=== PATIENT | female | born 1960 | race Asian ===

== ENCOUNTER 2017-08-02 05:23 | Observation (INO) | payer BC, OTHER ==
--- NOTE | 2017-08-01 08:09 | PDGENHP ---
History and Physical History and Physical: Assessment and Plan: 1. Complete uterine prolapse Skip has complete uterovaginal prolapse and stress urinary incontinence. We reviewed all conservative and surgical options. She is not interested in trying a pessary. Given her gaping introitus I do not feel one would stay in place anyhow. At the end of our discussion she is requesting surgical management. This will involve a robotic supracervical hysterectomy, sacral colpopexy, mid urethral sling, perineorrhaphy, and cystoscopy. The risks benefits and alternatives were presented and informed consent was obtained. She is scheduled at [facility]. 2. Genuine stress incontinence, female Subjective: Patient ID: Skip Mckeon is a 56 y.o. female who presents to [facility] for prolapse and incontinence. HPI Skip is a 56-year-old woman with a greater than two-year history of pelvic organ prolapse. She finds it difficult to urinate. The prolapse protrudes from the vagina almost continuously. She also finds it is quite uncomfortable at the end of the day. She is able to pass bowel movements. She recently saw Dr. Palomares and was referred to me for surgical correction. She declined a trial of a pessary. She does leak urine with coughing laughing and sneezing. PastMedicalHistory No past medical history on file. PastSurgicalHistory No past surgical history on file. CURRENT MEDICATIONS: Current Outpatient Prescriptions Medication Sig estradiol (ESTRACE) 0.01 % (0.1 mg/gram) vaginal cream Place 1 g vaginally twice a week. No current facility-administered medications for this visit. ALLERGIES: Penicillins I have reviewed, verified and agree with the past medical, surgical, , family, social and ROS history as documented by the RN today. Objective: Vital Signs: Visit Vitals BP 106/62 Pulse 65 Temp 36.7 C (98.1 F) (Temporal Artery) Resp 12 Ht 1.6 m (5' 3") Wt 67.1 kg (148 lb) SpO2 98% BMI 26.22 kg/m Physical Exam Gen: This is an alert, well developed woman in no distress. Neuro: She moves all extremities. Psych: She is appropriate, oriented, with normal affect. Neck: No thyroid enlargement, adenopathy, or tenderness. Lungs: Clear to ascultation, no wheezes or rales. Heart: Regular rate and rhythm without obvious murmurs. Abdomen: Soft, non-tender, without guarding, rebound, or masses. Extremities: No edema or cyanosis. Pelvic: Normal external genitalia. Gaping 6 cm introitus, vagina without discharge, mildly atrophic. She has complete uterovaginal prolapse. Cervix without lesions or discharge. Uterus normal sized, mobile, non-tender. Adnexa non-tender without enlargement. The urethra is mobile. She has obvious leakage of urine with strong coughing. The perineal body is thin and hypermobile. DATA: I have reviewed the pertinent medical records. TIME/COMMUNICATION: I personally spent a total of 60 minutes. Of that 45 minutes was counseling/ coordination of patient's care. See my note above for details. Avni Gonzalez MD Board Certified Female Pelvic Medicine and Reconstructive Surgery Director of Minimally Invasive Gynecologic Surgery, [facility] Surgeon in Minimally Invasive Gynecologic Surgery [facility] Surgeon in Robotic Surgery
[2017-08-02] MEDS ORDERED: ACETAMINOPHEN 500 MG TAB PO ONE (06:05)
[2017-08-02] MEDS ORDERED: CLINDAMYCIN 900 MG/DEXTROSE 50 ML IV ONE (06:05)
[2017-08-02] MEDS ORDERED: PHENAZOPYRIDINE HCL 200 MG TAB PO ONE (06:05)
[2017-08-02] MEDS ORDERED: LIDOCAINE 1% 2 ML INJ ID PRN (06:08)
[2017-08-02] MEDS ORDERED: LR 1,000 ML IV ONE (06:08)
[2017-08-02] MEDS ORDERED: PHENYLEPHRINE 10 MG/ML SDV ONE (06:51)
[2017-08-02] MEDS ORDERED: DEXAMETHASONE 4 MG/ML VIAL ONE (06:51)
[2017-08-02] MEDS ORDERED: ROCURONIUM 100 MG/10 ML VIAL ONE (06:51)
[2017-08-02] MEDS ORDERED: SUGAMMADEX SODIUM 200 MG/2 ML VIAL IVP ONE (06:51)
[2017-08-02] MEDS ORDERED: ONDANSETRON 4 MG/2 ML VIAL ONE (06:51)
[2017-08-02] MEDS ORDERED: PROPOFOL/EMULSION 500 MG/50 ML BOTTLE IV ONE ×2 (06:52)
[2017-08-02] MEDS ORDERED: HYDROmorphONE/DILAUDID 2 MG/ML INJ ONE (06:52)
[2017-08-02] MEDS ORDERED: MIDAZOLAM 2 MG/2 ML VIAL ONE (06:52)
[2017-08-02] MEDS ORDERED: LIDOCAINE 2% 5 ML SDV ONE (07:03)
[2017-08-02] MEDS ORDERED: fentaNYL 100 MCG/2 ML INJ ONE ×2 (07:03→10:30)
--- NOTE | 2017-08-02 07:08 | PDANEPAE ---
ANE Past Medical History - Cardiovascular History Hx Hypertension: No Hx Arrhythmias: No Hx Chest Pain: No Hx Coronary Artery / Peripheral Vascular Disease: No Hx CHF / Valvular Disease: No Hx Palpitations: No - Pulmonary History Hx COPD: No Hx Asthma/Reactive Airway Disease: No Hx Recent Upper Respiratory Infection: No Hx Oxygen in Use at Home: No Hx Sleep Apnea: No Sleep Apnea Screening Result - Last Documented: Negative - Neurologic History Hx Cerebrovascular Accident: No Hx Seizures: No Hx Dementia: No - Endocrine History Hx Diabetes: No - Renal History Hx Renal Disorders: No - Liver History Hx Hepatic Disorders: No - Neurological & Psychiatric Hx Hx Neurological and Psychiatric Disorders: Yes Neurological / Psychiatric History Comment: headaches - Cancer History Hx Cancer: No - Congenital Disorder History Hx Congenital Disorders: No - GI History Hx Gastrointestinal Disorders: Yes Gastrointestinal History Comment: reflux - Chronic Pain History Chronic Pain: No - Surgical History Prior Surgeries: none ANE Review of Systems Review of Systems: - Exercise capacity METS (RN): 4 METS ANE Patient History - Allergies Allergies/Adverse Reactions: ampicillin Allergy (Verified 07/27/17 16:18) Hives Penicillins Allergy (Verified 07/27/17 16:17) Hives - NPO status NPO Since - Liquids (Date): 08/01/17 NPO Since - Liquids (Time): 20:00 NPO Since - Solids (Date): 08/01/17 NPO Since - Solids (Time): 17:00 - Anes Hx Anes Hx: no prior problems - Smoking Hx Smoking Status: Never smoked - Family Anes Hx Family Hx Anesthesia Complications: none ANE Labs/Vital Signs - Vital Signs Blood Pressure: 109/75 Heart Rate: 62 Respiratory Rate: 16 O2 Sat (%): 94 Height: 160.02 cm Weight: 65.771 kg ANE Physical Exam - Airway Mallampati Score: Class 1 Mouth exam: normal dental/mouth exam ANE Anesthesia Plan Anesthesia Plan: general endotracheal anesthesia
[2017-08-02] MEDS ORDERED: BUPIVACAINE/EPI 0.5% 30 ML SDV ONE (07:22)
[2017-08-02] MEDS ORDERED: GLYCOPYRROLATE 0.2 MG/1 ML VIAL ONE ×2 (09:23→09:39)
[2017-08-02] MEDS ORDERED: NEOSTIGMINE METHYLSULFATE 3 MG/3 ML SYR ONE (09:39)
[2017-08-02] MEDS ORDERED: HYDROmorphONE/DILAUDID 1 MG/ML INJ IVP PRN ×2 (09:46→10:23)
[2017-08-02] MEDS ORDERED: ONDANSETRON 4 MG/2 ML VIAL IVP PRN ×2 (09:46→10:23)
[2017-08-02] MEDS ORDERED: NALOXONE HCL 0.4 MG/ML INJ IVP PRN (09:46)
[2017-08-02] MEDS ORDERED: MEPERIDINE 25 MG/ML SYR IVP PRN (09:46)
[2017-08-02] MEDS ORDERED: DEXAMETHASONE 4 MG/ML VIAL IVP PRN (09:46)
[2017-08-02] MEDS ORDERED: LABETALOL HCL 5 MG/ML 20 ML MDV IVP PRN (09:46)
--- NOTE | 2017-08-02 09:48 | POSTANESTH ---
Post Anesthetic Evaluation Respiratory Status: Normal, Stable Level of Consciousness/Mental Status: Can Participate in Eval Pain Control: Adequate, Prn Tx Ordered Nausea/Vomiting Control: Adequate, Prn Tx Ordered Complications Possibly Related to Anesthesia: None Noted
--- NOTE | 2017-08-02 10:13 | PDHPUP ---
History & Physical Update H&P update statement: This history and physical update is based on an assessment of the patient which was completed after admission or registration (within 24 hours), but prior to the surgery/procedure. H&P update: H&P reviewed & patient examined, no change in patient's condition since H&P completed
[2017-08-02] MEDS ORDERED: NALOXONE HCL 0.4 MG/ML INJ ONE (10:18)
[2017-08-02] MEDS ORDERED: PROMETHAZINE HCL 25 MG/ML INJ IVP PRN (10:23)
--- NOTE | 2017-08-02 10:23 | POSTOPPROG ---
Post Op Note Date of Operation: 08/02/17 Surgeon: Avni Gonzalez [employer] Engineer: Yolanda Martínez Anesthesiologist: Román Mckinney Anesthesia: GET(General Endotracheal) Pre-op Diagnosis: Uterovaginal prolapse Post-op Diagnosis: Same Procedure: Robotic hyst, sacrocolpopexy, perineoplasty Findings: Ureters function at end of case Inf/Abcess present in the surg proc area at time of surgery?: No EBL: Minimal Complications: None
[2017-08-02] MEDS ORDERED: LR 1,000 ML IV SCH (10:30)
[2017-08-02] MEDS: fentaNYL 100 MCG/2 ML INJ IVP PRN ×2 (10:40→11:39)
--- NOTE | 2017-08-02 11:35 | GOP ---
[f rep st] OPERATIVE REPORT DATE OF OPERATION: 08/02/2017 SURGEON: Avni Gonzalez MD LO[employer] SERVICING REPRESENTATIVE: Yolanda Martínez CFA. ANESTHESIA: General. PREOPERATIVE DIAGNOSIS: Uterovaginal prolapse. POSTOPERATIVE DIAGNOSIS: Uterovaginal prolapse. PROCEDURE PERFORMED: 1. Robotic-assisted laparoscopic hysterectomy, bilateral salpingectomy. 2. Robotic-assisted laparoscopic sacrocervicopexy with mesh. 3. Repair of cystocele and rectocele. 4. Perineorrhaphy. 5. Cystoscopy. FINDINGS: SPECIMENS: Uterus, bilateral tubes. ESTIMATED BLOOD LOSS: Scant. DESCRIPTION OF PROCEDURE: Patient was taken to the operating room where she was identified. General anesthesia was administered and found to be adequate. She was placed in the lithotomy position and prepared and draped in normal sterile fashion. A Perera catheter was placed in her bladder. A 1 cm intraumbilical incision was made with a scalpel. The Veress needle with the CO2 gas flowing w as advanced into the peritoneal cavity. The abdomen was then insufflated with carbon dioxide gas. T he 12 mm trocar followed by the laparoscope was then inserted. The upper abdomen was unremarkable. Two lateral ports were placed on either side under direct visualization. She then was placed in [place] position and the da Mateo robot docked on the left side. The instruments were then brought into the abdominal cavity under direct visualization. The left fallopian tube was along the mesosalpinx. The utero-ovarian ligament, followed by the round ligament, were then cauterized and transected. The anterior leaf of the broad ligament wa s then incised over the left uterine vessels and across the cervix. The bladder was gently dissected off the cervix and the upper vagina. The left uterine vasculature was then cauterized and transecte d. The exact same procedure was performed on the patient's right side. The uterus was then bivalved to aid in removal through the umbilicus. The uterus and upper 3/4 of the cervix were amputated from the lower 1/4 of the cervix with the hot ludin. The specimen was placed in the right upper quadran t for later removal. The Colpo-Probe was placed in the vagina. The bladder was further dissected off the anterior vaginal wall down to the level of bladder neck. The rectovaginal space was then entered and the rectum diss ected off the posterior vaginal wall down to the perineal body. Measurements were then obtained and the mesh trimmed to size. The sigmoid colon was then retracted laterally. The peritoneum over the sacral promontory was incise d and the fat pad gently dissected off the anterior longitudinal ligament. The mesh was then brought into the abdominal cavity. Three sutures of 4-0 Everson-Fredy were used to attach the distal posterior m esh to the perineal body. Two additional rows of Everson-Fredy sutures were placed posteriorly. Three ro ws were placed anteriorly to suture the anterior mesh down to the level of the bladder neck and later ally to the paravaginal tissue. The Colpo-Probe was then removed. Tension was then placed on the sa cral arm of the mesh to resolve the cystocele and rectocele. I then scrubbed back into the case to e xamine the vagina. The tension was further adjusted to resolve her prolapse without undue tension on the vagina. Three sutures of 2-0 Everson-Fredy were used to attach the sacral arm of the mesh to the ant erior longitudinal ligament at the level of the upper first sacral vertebral body. The excess mesh w as then trimmed. The peritoneum was then closed over the entire mesh. The robot was then undocked. The specimen removed through the umbilicus. The fascia was closed with 0 Vicryl, skin with 4-0 [place] cryl and surgical adhesive. Attention was turned to the sling procedure. The mid urethral incision was made with a scalpel. Dane serg were created bilaterally up to the obturator internus muscles. Two incisions were made over the obturator notches. The Halo trocar was placed through the left skin incision, redirected around the ischial pubic rami and out through the vaginal incision using a vaginal finger as a guide. No evide nce of vaginal injury occurred. The sling was then attached and brought out along the same course. The exact same procedure was performed on the patient's right side. Cystoscopy was then performed. It was noted that the mesh had just barely pierced the right proximal bladder near the bladder neck. As a result, the sling was then removed. Cystoscopy was repeated, and the area was hemostatic. A F oley catheter was then placed. The incision was closed with 2-0 Vicryl. Attention was then turned to the perineorrhaphy. A transverse incision was made along the perineal b sharita. The posterior vaginal wall was scissors and incised sagittally. The epithelium was then gently dissected off the underlying rectovaginal connective tissue. The connective tissue was t hen plicated in the midline with 0 Vicryl suture. The excess epithelium was then trimmed and closed with a running 0 Vicryl suture. Vaginal packing was then placed, anesthesia was reversed, and the pa tient taken to the PACU awake in stable condition. COMPLICATIONS: None. DISPOSITION: Patient stable to PACU. /[id number]/MODL
[2017-08-02] MEDS: KETOROLAC 30 MG/1 ML SDV IVP SCH ×3 (15:36→21:27)
[2017-08-02] MEDS: HYDROCODONE/APAP 5/325 TAB PO PRN (18:27)
[2017-08-02] MEDS: SIMETHICONE 80 MG TAB CHEW PO SCH ×3 (19:14→21:26)
[2017-08-02] MEDS: DOCUSATE SODIUM 100 MG CAP PO SCH (21:26)
[2017-08-03] MEDS: KETOROLAC 30 MG/1 ML SDV IVP SCH ×2 (03:19→09:20)
[2017-08-03 03:43] LABS: HEMATOCRIT 36.8 % (38.0-47.0)
[2017-08-03] MEDS: HYDROCODONE/APAP 5/325 TAB PO PRN ×2 (07:17→11:59)
[2017-08-03] MEDS: SIMETHICONE 80 MG TAB CHEW PO SCH (09:20)
[2017-08-03] MEDS: DOCUSATE SODIUM 100 MG CAP PO SCH (09:20)
[2017-08-03 09:26] VITALS: BP 89/49; PULSE 67; RESP 12; TEMP 98.4; O2SAT 96
[2017-08-03] MEDS ORDERED: FLU VACC QS 2017-18 (3YR+)/PF 0.5 ML SYR (FLUARIX QUAD) IM ONE ×2 (09:53→09:56)
[2017-08-03] MEDS ORDERED: HYDROmorphone HCL/NS/PF 0.4 MG/2 ML SYR IVP PRN (10:17)
--- NOTE | 2017-08-03 10:34 | GDS ---
[f rep st] DISCHARGE SUMMARY DISCHARGE DIAGNOSIS: Uterovaginal prolapse. PROCEDURES: 1. Robotic-assisted laparoscopic hysterectomy, bilateral salpingectomy. 2. Robotic-assisted laparoscopic sacrocervicopexy with mesh. 3. Repair of cystocele and rectocele. 4. Perineorrhaphy. 5. Cystoscopy. HISTORY: Suffered from complete uterovaginal prolapse. She was taken to the operating room on 08/02, where she underwent the above-mentioned procedures without complications. Her postoperative c ourse was uneventful. The morning after surgery she was ambulating, voiding, and tolerating a genera l diet. She was discharged home with ibuprofen and [place] for pain. She is to follow up in the [facility] e 2 weeks after discharge. /[id number]/MOD
== END 2017-08-03 12:02 | disposition home or self-care (01) ==
LOC: F3E 05:23 → F3N 05:23 → UNDOADMOB 05:23 → FOB 13:21
PROVIDERS: ADMIT Obstetrics & Gynecology; ATTEND Obstetrics & Gynecology
DX: N81.3 Complete uterovaginal prolapse (principal); N39.3 Stress incontinence (female) (male); Z23 Encounter for immunization
CPT/HCPCS: 57260; 57288; 57425; 58542; 90471; G0378; C1763; C1771; G0008; J1100; J1170; J1885; J1956; J2250; J2310; J2370; J2405; J2704; J2710; J3010